=== PATIENT | male | born 1945 | race Caucasian/White ===

== ENCOUNTER → 2016-08-17 | Outpatient (CLI) | payer OTHER | LOC: MMPC 10:00 | PROVIDERS: ATTEND Orthopaedic Surgery | DX: M17.0 Bilateral primary osteoarthritis of knee (principal) | CPT/HCPCS: 20610 ×2; 99213; G0463; J0702; J7325 ==

== ENCOUNTER → 2016-09-02 | Outpatient (CLI) | payer OTHER | LOC: MMPC 09:00 | PROVIDERS: ATTEND Family Medicine | DX: R53.83 Other fatigue (principal); M17.0 Bilateral primary osteoarthritis of knee ==

== ENCOUNTER → 2016-09-04 | Outpatient (CLI) | payer OTHER ==
[2016-09-04 10:22] LABS: BASOPHILS # (AUTO) 0.02 10*3/UL; BASOPHILS % (AUTO) 0.3 % (0-1); EOSINOPHILS # (AUTO) 0.16 10*3/UL; EOSINOPHILS % (AUTO) 2.4 % (0-8); HEMATOCRIT 44.8 % (42.0-52.0); HEMOGLOBIN 14.9 g/dL (14.0-18.0); LYMPHOCYTES # (AUTO) 1.44 10*3/uL; MEAN CORPUSCULAR HEMOGLOBIN 30.3 PG (27-31); MEAN CORPUSCULAR HGB CONC 33.3 g/dL (33-37); MEAN CORPUSCULAR VOLUME 91.2 FL (80-90); MEAN PLATELET VOLUME 9.7 FL (7.4-12.2); MONOCYTES # (AUTO) 0.52 10*3/UL (0.3-0.8); MONOCYTES % (AUTO) 7.7 % (5-15); NEUTROPHILS # (AUTO) 4.55 10*3/UL; NEUTROPHILS % (AUTO) 67.8 % (50-80); RED BLOOD COUNT 4.91 10^6/uL (4.70-6.10)
[2016-09-04 10:27] LABS: PLATELET MORPHOLOGY COMMENT NORMAL MORPHOLOGY (NORM); RBC MORPHOLOGY COMMENT NORMAL MORPHOLOGY (NORM); WBC MORPHOLOGY COMMENT NORMAL MORPHOLOGY (NORM)
[2016-09-04 10:57] LABS: BLOOD UREA NITROGEN 16 mg/dL (7-22); BUN/CREATININE RATIO 22.85 (6-20); CALCIUM 9.3 mg/dL (8.7-10.7); CHOL/HDL RATIO 5.25 RATIO (0-4.0); EST GLOMERULAR FILTRATION > 60 (>60 ml/min/1.73m(2)); HDL CHOLESTEROL 40 mg/dL (40-150); SERUM ALBUMIN 3.9 g/dL (3.5-4.8); SERUM CHOLESTEROL 210 mg/dL (120-200)
[2016-09-04 10:58] LABS: HEMOGLOBIN A1C 5.11 % (4.2-6.0)
[2016-09-04 11:22] LABS: FREE T4 (FREE THYROXINE) 0.91 ng/dL (0.93-1.71)
== END ==
LOC: LAB 10:06
PROVIDERS: ATTEND Family Medicine
DX: M17.0 Bilateral primary osteoarthritis of knee (principal); R53.83 Other fatigue; R73.09 Other abnormal glucose; I10 Essential (primary) hypertension; E78.5 Hyperlipidemia, unspecified; Z12.5 Encounter for screening for malignant neoplasm of prostate; Z83.3 Family history of diabetes mellitus
CPT/HCPCS: 36415; 80053; 80061; 82306; 82607; 83036; 84403; 84439; 84443; 84550; 85025; G0103

== ENCOUNTER 2016-09-17 12:42 | Day surgery (SDC) | payer OTHER ==
[~2016-09-17 12:42] MED LIST: LIDOCAINE W/ SODIUM BICARB 0.5 ML SYR ONE; Lactated Ringers 1,000 ML PRIMARY IV ONE; ceFAZolin Inj 2gm (Premix) 50 ML IV ONE
[2016-09-17] MEDS ORDERED: MIDAZOLAM 5 MG/1 ML ONE (14:55)
[2016-09-17] MEDS ORDERED: fentaNYL Inj 100 MCG/2 ML VIAL ONE (14:55)
[2016-09-17] MEDS ORDERED: DEXAMETHASONE SOD PHOSPHATE 4 MG/1 ML VIAL ONE (15:05)
[2016-09-17] MEDS ORDERED: MEPIVACAINE HCL/PF 20 MG/1 ML IV ONE (15:05)
[2016-09-17] MEDS ORDERED: LIDOCAINE 2%/ EPI 1:200,000 - 20 ML VIAL ONE (15:05)
[2016-09-17] MEDS ORDERED: Sodium Chloride 0.9% vial 10 ML ONE (15:23)
[2016-09-17] MEDS ORDERED: BACITRACIN 50,000 UNIT VIAL IRRIG ONE (15:23)
[2016-09-17] MEDS ORDERED: Lactated Ringers 1,000 ML PRIMARY IV ONE (16:14)
[2016-09-17] MEDS ORDERED: KETOROLAC 30 MG/1 ML VIAL ONE ×2 (17:11→18:44)
[2016-09-17] MEDS ORDERED: Prochlorperazine Tab 10 MG TAB PO PRN (17:20)
[2016-09-17] MEDS ORDERED: HYDROmorphone 2 MG/1 ML IVP PRN (17:20)
[2016-09-17] MEDS ORDERED: BISACODYL 5 MG TABLET PO PRN (17:20)
[2016-09-17] MEDS ORDERED: NORMAL SALINE 10 ML SYRINGE FLUSH IVP PRN (17:20)
[2016-09-17] MEDS ORDERED: BISACODYL 10 MG SUPPOSITORY RECTAL PRN (17:20)
[2016-09-17] MEDS ORDERED: HYDROcodone-APAP 7.5 MG-325 MG TABLET PO PRN (17:20)
[2016-09-17] MEDS ORDERED: ONDANSETRON 4 MG/2 ML VIAL IVP PRN (17:20)
[2016-09-17] MEDS ORDERED: ACETAMINOPHEN 325 MG TABLET PO PRN (17:20)
[2016-09-17] MEDS ORDERED: MAG HYDROX/AL HYDROX/SIMETH 30 ML SUSP PO PRN (17:20)
[2016-09-17] MEDS ORDERED: CALCIUM CARBONATE 500 MG (TUMS) CHEWABLE TABLET PO PRN (17:20)
[2016-09-17] MEDS ORDERED: Ondansetron ODT Tab 8 MG TAB PO PRN (17:20)
[2016-09-17] MEDS ORDERED: diphenhydrAMINE 25 MG CAPSULE PO PRN (17:20)
[2016-09-17] MEDS ORDERED: IBUPROFEN 400 MG TABLET PO PRN (17:20)
[2016-09-17] MEDS ORDERED: Lactated Ringers 1,000 ML PRIMARY IV SCH (17:30)
--- NOTE | 2016-09-17 17:55 | CRNA.PROCE ---
Nerve Block Documentation - - Type of Nerve Block Used: Right Axillary Block, Right Infraclavicular Block Position for Nerve Block: Supine Moniters Used During Block: EKG, SPO2, NIBP Oxygen Sumpplented: Yes Sedation Used - Enter Amount in Comment Field: Midazolam (mg): Yes (2mg), Fentanyl (mcg): Yes (50mcg) Skin Prep Used: ChloroPrep Draped: Yes Technique: Nerve Stimulator Nerve Block Needle Used: 40 mm ProBlk II Stimulation Hz: 2 Stimulation Staring mA: 1.4 Stimulation Ending mA: 0.48 Local Anesthetic - Enter Amt in Comment Field: 2 % Xylocaine with Epinephrine 1: 200,000 (mL): Yes (10ml/each block), 2 % Mepivacaine (mL): Yes (10ml/each block) Additives to Nerve Blocks: Dexamethasone (mg): Yes (4g(1ml)/each block)
[2016-09-17 18:03] VITALS: RESP 18
[2016-09-17 18:40] VITALS: TEMP 96.8
== END 2016-09-17 18:30 | disposition home or self-care (01) ==
LOC: SDSC 12:42
PROVIDERS: ATTEND Orthopaedic Surgery
DX: G56.21 Lesion of ulnar nerve, right upper limb (principal); G56.01 Carpal tunnel syndrome, right upper limb
CPT/HCPCS: 64718; 64721; A4216; J0670; J0690; J1100; J1885; J2250; J2704; J3010; J7120